=== PATIENT | male | born 1955 ===

== ENCOUNTER 2023-06-09 07:35 | Day surgery (SDC) | payer OTHER ==
[2023-06-09] VITALS (17 sets, daily range): BP systolic 96–154; BP diastolic 68–127
[~2023-06-09] VITALS: Ht 182.9 cm; Wt 123.1 kg
[~2023-06-09 07:35] MED LIST: CELECOXIB100 M1 PO; MOTRIN IB200 MG PO; TRAM50 PO
[2023-06-09] MEDS ORDERED: Tranexamic Acid 1,000 MG in NS 100 ML IV SCH (08:25)
[2023-06-09] MEDS ORDERED: Lactated Ringer's 1,000 ML IV SCH ×2 (08:25→12:05)
[2023-06-09] MEDS ORDERED: Acetaminophen 500 MG Tab PO SCH ×2 (08:25→16:00)
[2023-06-09] MEDS ORDERED: OxyCODONE HCL 10 MG TABCR PO SCH (08:25)
[2023-06-09] MEDS ORDERED: Ropivacaine 0.5% HCl/Pf 123.125 MG,EPINEPHrine HCL 0.25 MG,Ketorolac Tromethamine 15 MG... INFIL SCH (08:25)
[2023-06-09] MEDS ORDERED: Chlorhexidine Mouth Care 15 ML UDC MT SCH (08:25)
[2023-06-09] MEDS ORDERED: CeFAZolin Sodium 3,000 MG in NS 100 ML IV SCH (08:25)
[2023-06-09] MEDS ORDERED: Percocet 5-3251 EACH PO (08:35)
--- NOTE | 2023-06-09 09:48 | NUR ---
UP TO BR TO VOID.
[2023-06-09] MEDS ORDERED: FentaNYL Citrate 50 MCG/ML 2 ML Injection ONE (09:55)
[2023-06-09] MEDS ORDERED: propofoL 60 ML IV ONE (09:55)
[2023-06-09] MEDS ORDERED: ePHEDrine Sulfate 50 MG/ML 1ML Injection ONE (10:19)
[2023-06-09] MEDS ORDERED: Glycopyrrolate 0.2 MG/ML 5ML VIAL ONE (10:20)
[2023-06-09] MEDS ORDERED: Ondansetron HCl 2 MG / ML 2ML Vial ONE (10:20)
[2023-06-09] MEDS ORDERED: Dexamethasone Sod Phos 10 MG/ML 1ML VIAL ONE (10:20)
[2023-06-09] MEDS ORDERED: Phenylephrine HCl 100 MCG/ML-NS 10MLSYR (1MG/10ML) ONE (10:20)
[2023-06-09] MEDS ORDERED: propofoL 20 ML IV ONE (11:25)
[2023-06-09] MEDS ORDERED: Promethazine HCl 25 MG Tab PO PRN (12:00)
[2023-06-09] MEDS ORDERED: Prochlorperazine Edisylate 10 mg Vial IV PRN (12:00)
[2023-06-09] MEDS ORDERED: OxyCODONE HCL 5 MG TAB PO PRN ×2 (12:00)
[2023-06-09] MEDS ORDERED: HYDROmorphone HCl/Pf 1MG SYR IV PRN (12:05)
[2023-06-09] MEDS ORDERED: Magnesium Hydroxide Conc 10 ML UDC PO PRN (12:05)
[2023-06-09] MEDS ORDERED: Metoclopramide HCl 5MG / ML 2ML Vial IV PRN (12:05)
[2023-06-09] MEDS ORDERED: DiphenhydrAMINE HCL 25 MG Cap PO PRN (12:10)
[2023-06-09] MEDS ORDERED: Bisacodyl 10 MG Supp PR PRN (12:10)
[2023-06-09] MEDS ORDERED: Ondansetron HCl 2 MG / ML 2ML Vial IV PRN (12:10)
--- NOTE | 2023-06-09 14:44 | NUR ---
CARE ASSUMED OF PT AT APPROXIMATELY 1350. PT DENIED PAIN. HE REPORTS DECREASED SENSATION HAS DECREASED MOVEMENT TO BLE LIKELY R/T SPINAL ANESTHESIA. PT DOES HAVE SOME MOVEMENT TO BLE. CALL LIGHT PLACED WITHIN REACH.
[2023-06-09] MEDS ORDERED: Ketorolac Tromethamine 15mg Vial IV SCH (18:00)
[2023-06-09] MEDS ORDERED: CeFAZolin Sodium 2,000 MG in NS 100 ML IV SCH (18:00)
--- NOTE | 2023-06-09 18:32 | NUR ---
SHIFT SUMMARY PT IS POD#0 FROM [facility] WITH DR. PAVON. WHEN PT ARRIVED TO THE ROOM FROM PACU HIS LLE WAS EXTERNALLY ROTATED. DR. PAVON EXAMINED, PER DR. PAVON HE BELIEVED THE L HIP TO BE DISLOCATED. DISLOCATION REDUCED BY DR. PAVON AT HE BEDSIDE. PT HAS HAD RETURN OF SENSATION AND MOVEMENT TO BLE. XRAYS COMPLETE. PT IS TOLERATING PO. PAIN MANAGED. PT CALLS APPRORIATELY.
--- NOTE | 2023-06-09 19:22 | NUR ---
BEDSIDE REPORT GIVEN TO LILIANE ZAPATA.
[2023-06-09] MEDS ORDERED: Docusate Sodium 100 MG Cap PO SCH (21:00)
[2023-06-10 02:31] VITALS: BP 108/75
--- NOTE | 2023-06-10 05:07 | NUR ---
SHIFT SUMMARY POD 1 L GARY PT ABLE TO REST DURING THE SHIFT. PAIN MANAGED PER EMAR. PT ABLE TO AMBULATE TO THE BR. 1 PERS ASST WITH WALKER AND GAIT BELT. TOLERATING PO INTAKE, VOIDING. AQUACEL TO L HIP IS C/D/I. PLAN TO WORK WITH PHYSICAL THERAPY THEN D/C HOME. NO OTHER CONCERNS AT THIS TIME, CALL LIGHT WITHIN REACH
[2023-06-10 05:36] LABS: BASOPHILS ABSOLUTE AUTO 0.01 K/mm3 (0.00-0.23); BASOPHILS PERCENT AUTO 0 % (0-2); EOSINOPHILS PERCENT AUTO 0 % (0-6); Hematocrit 29.7 % (37.0-53.0); Hemoglobin 9.4 g/dL (13.5-17.5); IMMATURE GRAN ABSOLUTE AUTO 0.05 K/mm3 (0.00-0.10); IMMATURE GRAN PERCENT AUTO 0 % (0-1); LYMPHOCYTES ABSOLUTE AUTO 0.97 K/mm3 (0.84-5.20); LYMPHOCYTES PERCENT AUTO 7 % (21-46); MONOCYTES ABSOLUTE AUTO 0.79 K/mm3 (0.16-1.47); MONOCYTES PERCENT AUTO 5 % (4-13); Mean Corpuscular HGB 19.3 pg (26.0-34.0); Mean Corpuscular HGB Conc 31.6 g/dL (31.5-36.5); Mean Corpuscular Volume 61 fL (80-100); Mean Platelet Volume 10.4 fL (9.1-12.4); NEUTROPHILS ABSOLUTE AUTO 13.01 K/mm3 (1.96-9.15); NEUTROPHILS PERCENT AUTO 88 % (41-73); Platelet Count 230 K/mm3 (150-400); RDW Coefficient Variation 17.2 % (11.7-14.2); RDW Standard Deviation 35.8 fL (35.1-46.3); Red Blood Cell Count 4.87 M/mm3 (4.30-5.90); White Blood Cell Count 14.83 K/mm3 (4.00-11.30)
[2023-06-10 06:15] LABS: Bun/Creatinine Ratio 26.5 (12.0-20.0); Calcium, Blood 8.7 mg/dL (8.5-10.1); Creatinine, Blood 0.94 mg/dL (0.60-1.20); Potassium, Blood 4.9 mmol/L (3.5-5.5)
[2023-06-10 07:17] VITALS: BP 142/92
[2023-06-10] MEDS ORDERED: Aspirin 81 MG Chew PO SCH (09:00)
[2023-06-10] MEDS ORDERED: ASPI81CH PO (10:52)
--- NOTE | 2023-06-10 11:45 | NUR ---
DISCHARGE PT DISCHARGED HOME FROM UNIT AT APROX 1146. PT GIVEN WRITTEN AND VERBAL DC INSTRUCTIONS AND VERBALIZED UNDERSTANDING OF THESE INSTRUCTIONS. IV REMOVED. PT STATES HE HAS ALREADY PICKED UP ALL NEW RX'S.
== END 2023-06-10 11:48 | disposition home or self-care (01) ==
LOC: ORSCMMR 07:35 → SURS 12:56 → ORSCMMR 06-10 11:48
PROVIDERS: Orthopaedic Surgery
PROC: 0SRB0JZ Replacement of Left Hip Joint with Synthetic Substitute, Open Approach (ICD-10-PCS; principal; 2023-06-09 09:15)
DX: M16.12 Unilateral primary osteoarthritis, left hip (principal); E66.9 Obesity, unspecified; Z68.36 Body mass index [BMI] 36.0-36.9, adult; F17.210 Nicotine dependence, cigarettes, uncomplicated; Z79.899 Other long term (current) drug therapy
CPT/HCPCS: 36415; 72170; 80048; 85025; 97110; 97116; 97162; 97530; A9270; C1776; J0171; J0690; J0735; J0780; J1100; J1170; J1885; J2371; J2405; J2704; J2795; J3010; J7120

== ENCOUNTER → 2024-09-20 | Outpatient (CLI) | payer OTHER ==
[~2024-09-20] MED LIST changes: +ASPI81CH PO; +Percocet 5-3251 EACH PO
[2024-09-20 16:07] LABS: Creatinine, Urine Random 184.0 mg/dL (27.00-270.00); Microalb/Creat Ratio UR, Rand 20.109 mg/g (0.000-30.000); Microalbumin, Random Urine 37.0 mg/L (0.000-20.000)
== END ==
LOC: LAB SHORT 10:10 → LAB 10:10
PROVIDERS: Physician Assistant Medical
DX: N18.31 Chronic kidney disease, stage 3a (principal)
CPT/HCPCS: 82043; 82570